=== PATIENT | male | born 1960 | race Hispanic/Latino ===

== ENCOUNTER 2017-12-10 20:55 | Emergency (ER) | payer SELFPAY ==
--- NOTE | 2017-12-10 21:55 | RAD ---
THREE VIEWS LEFT SHOULDER: 12/10/17 HISTORY: Fall, left shoulder injury. AP, internally, externally and scapular Y-views left shoulder is obtained. There views left shoulder demonstrate no evidence of left shoulder fractures, subluxations, or bony l esions. IMPRESSION: Normal three views left shoulder. POS: [facility]
[2017-12-10] MEDS ORDERED: Ketorolac Tromethamine 60 MG/2 ML VIAL ONE (23:10)
== END 2017-12-10 23:34 | disposition home or self-care (01) ==
LOC: ERS 20:55
DX: S40.012A Contusion of left shoulder, initial encounter (principal); F17.210 Nicotine dependence, cigarettes, uncomplicated; V29.9XXA Motorcycle rider (driver) (passenger) injured in unspecified traffic accident, initial encounter
CPT/HCPCS: 96372; J1885